=== PATIENT | male | born 1980 | race Caucasian/White ===

== ENCOUNTER 2020-07-19 10:05 | Emergency (ER) | payer BC, SELFPAY ==
--- NOTE | ~2020-07-19 | US_ITS ---
EXAMINATION: US SCROTUM CLINICAL INFORMATION: Left scrotal pain. COMPARISON: None TECHNIQUE: A sonogram of the scrotum was performed assessing levy-scale appearance and color Doppler flow. Spectral Doppler analysis of the arterial and venous flow were performed in the testes bilaterally. FINDINGS: RIGHT: Right testicle measures 4.8 x 2.4 x 3.1 cm, volume 19.2 mL. No intratesticular mass. There is a small solitary calcification in the testes near the mediastinum testis. There is normal bilateral symmetric intratesticular color flow and low resistance waveforms. Bilateral venous flow as well. No torsion. Right epididymal head is normal in size. There is a small epididymal head cyst measuring only 0.3 cm. There is a small hydrocele. No varicocele. Epididymal color flow unremarkable. LEFT: Left testicle measures 4.2 x 2.3 x 3.3 cm, volume 16.5 mL. No focal testicular parenchymal lesions are visualized. There is normal bilateral symmetric intratesticular color flow and low resistance waveforms. Bilateral venous flow as well. No torsion. Left epididymal head is a slightly larger and heterogeneous but without hyperemia on color Doppler to confirm epididymitis. There are small hydroceles similar to that on the right. There is a small left varicocele measuring 3.8 mm venous diameter. US/US scrotum doppler IMPRESSION: 1. No intratesticular mass or torsion. 2. Small left varicocele. 3. Tiny right epididymal head cyst. 4. Small symmetric hydrocele.
--- NOTE | ~2020-07-19 | US_ITS ---
EXAMINATION: US SCROTUM CLINICAL INFORMATION: Left scrotal pain. COMPARISON: None TECHNIQUE: A sonogram of the scrotum was performed assessing levy-scale appearance and color Doppler flow. Spectral Doppler analysis of the arterial and venous flow were performed in the testes bilaterally. FINDINGS: RIGHT: Right testicle measures 4.8 x 2.4 x 3.1 cm, volume 19.2 mL. No intratesticular mass. There is a small solitary calcification in the testes near the mediastinum testis. There is normal bilateral symmetric intratesticular color flow and low resistance waveforms. Bilateral venous flow as well. No torsion. Right epididymal head is normal in size. There is a small epididymal head cyst measuring only 0.3 cm. There is a small hydrocele. No varicocele. Epididymal color flow unremarkable. LEFT: Left testicle measures 4.2 x 2.3 x 3.3 cm, volume 16.5 mL. No focal testicular parenchymal lesions are visualized. There is normal bilateral symmetric intratesticular color flow and low resistance waveforms. Bilateral venous flow as well. No torsion. Left epididymal head is a slightly larger and heterogeneous but without hyperemia on color Doppler to confirm epididymitis. There are small hydroceles similar to that on the right. There is a small left varicocele measuring 3.8 mm venous diameter. US/US scrotum IMPRESSION: 1. No intratesticular mass or torsion. 2. Small left varicocele. 3. Tiny right epididymal head cyst. 4. Small symmetric hydrocele.
[2020-07-19 11:13] VITALS: BP 134/80; PULSE 60; RESP 16; TEMP 36.6; O2SAT 98; BMI 27.3
[2020-07-19 11:52] LABS: Glucose Urine UA NEG (NEG); Leukocyte Esterase Urine NEG (NEG); Nitrite Urine NEG (NEG); Specific Gravity - Urine 1.025 (1.005-1.025); Urine Blood NEG (NEG); Urine Ketones NEG (NEG); Urine Protein NEG (NEG-TRACE)
[2020-07-19 11:54] LABS: Appearance Urine CLEAR; Color Urine YELLOW
--- NOTE | 2020-07-19 12:39 | ED.MALEGU ---
HPI - Male Genitourinary General Chief complaint: Urogenital-Male Stated complaint: groin pain Time Seen by Provider: 07/19/20 12:38 Source: patient Mode of arrival: ambulatory Limitations: no limitations History of Present Illness HPI Narrative: 40-year-old male came in for evaluation of left testicular pain. 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 Patient has bowel movement this morning, and passing flatus, no nausea, no vomiting. Patient described pain as a moderate 5/10, and constant. Patient has never had similar pain in the past. Related Data Allergies Allergy/AdvReac Type Severity Reaction Status Date / Time No Known Allergies Allergy Verified 07/19/20 11:15 Review of Systems Review of Systems: All other systems are reviewed and are negative Constitutional: Reports as per HPI and Reports no additional constitutional complaints Eyes: Reports as per HPI and Reports no additional eye complaints Reports system reviewed and no additional complaints, except as documented Cardiovascular: Reports as per HPI and Reports no additional cardiovascular complaints Respiratory: Reports as per HPI and Reports no additional respiratory complaints Gastrointestinal: Reports as per HPI and Reports no additional gastrointestinal complaints Genitourinary: Reports no additional female genitourinary complaints Musculoskeletal: Reports no additional musculoskeletal complaints Skin/Breast: Reports system reviewed and no additional complaints, except as docu Psychiatric: Reports no additional psychiatric complaints Endocrine: Reports no additional endocrine complaints Hematologic/Lymphatic: Reports no additional hematologic/lymphatic complaints Allergic/Immunologic: Reports no additional allergic/immunologic complaints Reports system reviewed and no additional complaints, except as documented and Reports Abnormal speech present [facility] Past Medical History Medical History No known health problems Surgical History H/O hernia repair Social History Social History Alcohol intake: never Smoking Status: Never smoker Use of substances other than those prescribed or required for medical reasons: No Advance Directives: Yes Advance Directives Information Provided: Yes Advance Directives on File: No Physical Exam Vital Signs: Vital Signs: Last Vital Signs Temp 98.2 F 07/19/20 13:10 Pulse 52 07/19/20 13:10 Resp 17 07/19/20 13:10 BP 140/86 H 07/19/20 13:10 Pulse Ox 98 07/19/20 13:10 Body Mass Index 27.3 Vital signs have been reviewed as appeared to be correct. Blood pressure elevated. Heart rate normal. Respiration rate normal. Temperature normal. Oxygen saturation normal. Appearance: Alert. Oriented X3. No acute distress. Head: Normal external exam. Normocephalic. Atraumatic. No [place] signs noted. No raccoon eyes noted Eyes: PERRLA. EOMI. Conjunctiva and sclera normal. Eyelids normal. ENT: TM's Normal. Pharynx normal. Uvula midline. Moist mucous membranes. No trismus noted. No drooling noted. No muffled voice noted. Neck: Normal inspection. Neck supple. FROM. No adenopathy. Thyroid Normal. No meningeal signs. No neck mass noted. CVS: Normal heart rate and rhythm. Heart sound normal. No murmurs noted. Pulses normal throughout. Respiratory: No respiratory distress. Painless inspiration. Breath sounds normal. No wheezes/rales/rhonchi noted. Chest nontender. No accessory muscle usage noted or decreased air movement noted. Abdomen: Soft and nontender. Bowel sounds normal in all 4 quadrants. No distention noted. No organomegaly noted. No visible injury noted. : Normal circumcised external genitalia, right testicle is nontender, mild tenderness to touch to the left testicle, bilateral cremasteric reflexes are intact. Back: No CVA tenderness. Full range of motion noted. Skin: Skin warm and dry. Normal skin color. Normal skin turgor. No rashes/lesions/lacerations noted. Extremities: No lower extremity edema. Extremities exhibit normal range of motion. Extremities nontender. Neuro: Oriented X 3. No motor deficit. No sensory deficit. Reflexes normal. Course Course Course Narrative: Assessment and plan. 40-year-old male came in with left testicular pain, exam ultrasound results, and UA result is not indicating epididymitis or testicular torsion. Patient was instructed to take 2 days off, avoid standing for long time, elevated testicle, use NSAIDs for the next 2 days every 6 hours. If pain persist patient was instructed to follow up with Dr. Medeiros. Slight elevation of the BUN patient was instructed to drink water and keep well hydrated. MDM - Male Genitourinary Lab Data Attestation: I reviewed the patient's lab results. Result diagrams: 07/19/20 13:05 07/19/20 13:05 Labs: Lab Results 07/19/20 07/19/20 07/19/20 Range/Units 11:20 13:05 13:05 WBC 6.0 (4.8-10.8) X10*3/uL RBC 5.09 (4.60-5.80) X10*6/uL Hgb 16.1 (14.0-18.0) g/dl Hct 47.2 (42-52) % MCV 92.7 (80-98) fL MCH 31.6 (27.0-33.0) pg MCHC 34.1 (31.0-36.0) g/dl RDW 12.4 (11.0-16.0) % Plt Count 182 (160-400) X10*3/uL MPV 10.4 (9.4-12.4) fL Immature Gran % (Auto) 0.2 (0.0-0.4) % Neut % (Auto) 61.1 (45-73) % Lymph % (Auto) 29.7 (20-40) % [place] % (Auto) 7.1 (2-11) % Eos % (Auto) 1.2 (0-4) % Baso % (Auto) 0.7 (0-2) % Lymph # (Auto) 1.8 (1.2-4.9) X10*3/uL [place] # (Auto) 0.4 (0.1-1.2) X10*3/uL Eos # (Auto) 0.1 (0.0-0.4) X10*3/uL Baso # (Auto) 0.0 (0.0-0.2) X10*3/uL Abs Immat Gran (auto) 0.01 (0.00-0.03) X10*3/uL Absolute Neuts (auto) 3.6 (2.0-8.3) X10*3/uL Absolute Nucleated RBC 0.000 (0.0-0.012) X10*3/uL Nucleated RBC % (auto) 0.0 (0.0-0.2) /100WBC Hold Blue Top SEE NOTE Sodium (135-145) mmol/L Potassium (3.3-5.1) mmol/L Chloride (96-108) mmol/L Carbon Dioxide (22-29) mmol/L Anion Gap (12-20) BUN (9-16) mg/dL Creatinine (0.5-1.4) mg/dL Estim Creat Clear Calc Estimated GFR Random Glucose (60-115) mg/dL Calcium (8.4-10.2) mg/dL Urine Color YELLOW Urine Appearance CLEAR Urine pH 6.0 (5.0-8.0) Ur Specific [place] 1.025 (1.005-1.025) Urine Protein NEG (NEG-TRACE) MG/DL Urine Glucose (UA) NEG (NEG) MG/DL Urine Ketones NEG (NEG) MG/DL Urine Blood NEG (NEG) Urine Nitrite NEG (NEG) Ur Leukocyte Esterase NEG (NEG) 07/19/20 Range/Units 13:05 WBC (4.8-10.8) X10*3/uL RBC (4.60-5.80) X10*6/uL Hgb (14.0-18.0) g/dl Hct (42-52) % MCV (80-98) fL MCH (27.0-33.0) pg MCHC (31.0-36.0) g/dl RDW (11.0-16.0) % Plt Count (160-400) X10*3/uL MPV (9.4-12.4) fL Immature Gran % (Auto) (0.0-0.4) % Neut % (Auto) (45-73) % Lymph % (Auto) (20-40) % [place] % (Auto) (2-11) % Eos % (Auto) (0-4) % Baso % (Auto) (0-2) % Lymph # (Auto) (1.2-4.9) X10*3/uL [place] # (Auto) (0.1-1.2) X10*3/uL Eos # (Auto) (0.0-0.4) X10*3/uL Baso # (Auto) (0.0-0.2) X10*3/uL Abs Immat Gran (auto) (0.00-0.03) X10*3/uL Absolute Neuts (auto) (2.0-8.3) X10*3/uL Absolute Nucleated RBC (0.0-0.012) X10*3/uL Nucleated RBC % (auto) (0.0-0.2) /100WBC Hold Blue Top Sodium 140 (135-145) mmol/L Potassium 4.4 (3.3-5.1) mmol/L Chloride 104 (96-108) mmol/L Carbon Dioxide 30 H (22-29) mmol/L Anion Gap 10 L (12-20) BUN 17 H (9-16) mg/dL Creatinine 1.01 (0.5-1.4) mg/dL Estim Creat Clear Calc 99.1 Estimated GFR > 60 Random Glucose 101 (60-115) mg/dL Calcium 9.5 (8.4-10.2) mg/dL Urine Color Urine Appearance Urine pH (5.0-8.0) Ur Specific [place] (1.005-1.025) Urine Protein (NEG-TRACE) MG/DL Urine Glucose (UA) (NEG) MG/DL Urine Ketones (NEG) MG/DL Urine Blood (NEG) Urine Nitrite (NEG) Ur Leukocyte Esterase (NEG) Imaging Data Scrotal ultrasound: Radiologist's impression: 1. No intratesticular mass or torsion. 2. Small left varicocele. 3. Tiny right epididymal head cyst. 4. Small symmetric hydrocele. Discharge Plan Discharge Clinical Impression: Left testicular pain Patient Disposition: Home, Self-Care Instructions: Testicle Pain (ED) Additional Instructions: Avoid standing for long time, laying supine keep towel in between your thighs and wrist your scrotum on it for elevation. Referrals: Yash Medeiros MD [Physician] - 2 days (If not improving in 2 days call this number and make an appointment.) Stand Alone Forms: Work/School Release
[2020-07-19] MEDS: Ibuprofen 600 MG TABLET 800 MG PO (12:59)
[2020-07-19 13:10] VITALS: BP 140/86; PULSE 52; RESP 17; TEMP 36.8; O2SAT 98
[2020-07-19 13:12] LABS: MANUAL DIFF FLAG NO
--- NOTE | 2020-07-19 13:12 | PC.NURSE ---
patient a&ox3, labs drawn, pt medicated per order, vss, pt awaiting US, will continue to monitor.
[2020-07-19 13:21] LABS: Basophils Percent Auto 0.7 % (0-2); Eosinophils Absolute Auto 0.1 X10*3/uL (0.0-0.4); Eosinophils Percent Auto 1.2 % (0-4); Hematocrit 47.2 % (42-52); Hemoglobin 16.1 g/dl (14.0-18.0); Imm Gran Abs Auto 0.01 X10*3/uL (0.00-0.03); Imm Gran Pct Auto 0.2 % (0.0-0.4); Lymphocytes Absolute Auto 1.8 X10*3/uL (1.2-4.9); Lymphocytes Percent Auto 29.7 % (20-40); Mean Corpuscular HGB Conc 34.1 g/dl (31.0-36.0); Mean Corpuscular Hemoglobin 31.6 pg (27.0-33.0); Mean Corpuscular Volume 92.7 fL (80-98); Mean Platelet Volume 10.4 fL (9.4-12.4); Monocytes Absolute Auto 0.4 X10*3/uL (0.1-1.2); Monocytes Percent Auto 7.1 % (2-11); Neutrophils Absolute Auto 3.6 X10*3/uL (2.0-8.3); Neutrophils Percent Auto 61.1 % (45-73); Platelet Count 182 X10*3/uL (160-400); Red Blood Count 5.09 X10*6/uL (4.60-5.80); Red Cell Distribution Width 12.4 % (11.0-16.0)
[2020-07-19 13:43] LABS: Anion Gap 10 (12-20); Blood Urea Nitrogen 17 mg/dL (9-16); Calcium 9.5 mg/dL (8.4-10.2); Carbon Dioxide 30 mmol/L (22-29); Chloride 104 mmol/L (96-108); Creatinine Clr Calc Pharmacy 99.1; Estimated Glomerular Filt Rate > 60; Glucose Random 101 mg/dL (60-115); Potassium 4.4 mmol/L (3.3-5.1); Sodium 140 mmol/L (135-145)
== END 2020-07-19 16:36 | disposition home or self-care (01) ==
PROVIDERS: Emergency Provider Emergency Medicine; PCP Internal Medicine
DX: N50.812 Left testicular pain (principal); R60.0 Localized edema; R10.30 Lower abdominal pain, unspecified
CPT/HCPCS: 36415; 76870; 80048; 81003; 85025; 93975; 99284

== ENCOUNTER 2022-01-07 16:31 | Emergency (ER) | payer OTHER, BC, SELFPAY ==
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
[2022-01-07 16:40] VITALS: BP 164/102; O2SAT 98
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
[2022-01-07 16:57] VITALS: BP 142/97; PULSE 180; RESP 18; TEMP 36.8; O2SAT 95; BMI 28.1
[2022-01-07] MEDS: ondansetron HCL 4 MG/2 ML VIAL IVPUSH (17:18)
--- OUTSIDE RECORDS SUMMARY | 2022-01-07 17:28 | XMS_ITS ---
:1980 Author Organization Dot Yoder MD [facility] Address [address] [place] [address] Care Team Providers Name Role Phone RYAN KNOX Unavailable Unavailable PROBLEMS Type Condition ICD9-CM Code [id number] Code Onset Condition SNO MED Code Dates Status Problem Prediabetes R73.03 Active 53292240 2 Problem Hyperlipidemia, E78.5 Active 5582 2003 unspecified Problem Vitamin D E55.9 Active 75293921 deficiency Problem Hypothyroidism, E03.9 Active 4093 0008 unspecified type ALLERGIES No Known Allergies ENCOUNTERS Encounter Location Date Diagnosis Dot Yoder MD [facility] [address] [facility] 234 03 Dec, 2021 Fam herbert history of colon [facility] [place] cancer in father Z80.0 ; [id number] Elevated blood p ressure reading in offic e without diagnosis of hyp ertension R03.0 ; Encounte r for annual health ex amination Z00.00 ; Vitamin D deficiency E55.9 ; Hyperlipidemia, unspecified E78. 5 ; Hypothyroidism, unspecified type E03.9 and Prediabetes R73. 03 Dot Yoder MD [facility] [address] [facility] 234 03 Dec, 2021 [place] [address] Dot Yoder MD [facility] [address] [facility] 234 Sep, Christina vated blood pressure [facility] [place] reading in offic e without [id number] diagnosis of hyp ertension R03.0 ; Family h istory of colon cancer in father Z80.0 ; Encounte r for annual health ex amination Z00.00 ; Vitamin D deficiency E55.9 and Hyperlipidemia, unspecified E78. 5 Dot Yoder MD [facility] [address] [facility] 234 Sep, [place] [address] Dot Yoder MD [facility] [address] [facility] 234 Sep, [place] [address] IMMUNIZATIONS Vaccine Route Administration Date Status Pfizer Covid-19 Vaccine Unknown August 23, 2020 Administ ered Pfizer Covid-19 Vaccine Unknown August 02, 2020 Administ erebobbi SOCIAL HISTORY Qualifiers Date Never Smoker REASON FOR REFERRAL FUNCTIONAL STATUS PLAN OF CARE Activity Details Future Appointment Provider Name:DOT YODER, 2022-03-06 10:45:00 AM, [address], [place], [address], Future Appointment Provider Name:RYAN KNOX, 2022-12-31 01:00:00 PM, [address] [facility], [facility] [address], [place], [place], [phone], Future Test 25OH VITAMIN D 20211119 Future Test CBC (COMPLETE BLOOD COUNT) W ITH DIFF 20211119 Future Test COMPREHENSIVE METABOLIC PANE L 20211119 Future Test HEMOGLOBIN A1C 20211119 Future Test LIPID PANEL 20211119 Future Test TSH WITH REFLEX TO FT4 82075 823 Future Test URINALYSIS W/REFLEX CULTURE 20211119 Pending Test 25OH VITAMIN D Pending Test CBC (COMPLETE BLOOD COUNT) Pending Test COMPREHENSIVE METABOLIC PANE L Pending Test HEMOGLOBIN A1C Pending Test LIPID PANEL Pending Test TSH Pending Test COMPLETE URINALYSIS VITAL SIGNS Heart Rate 73 /min 2021-12-30 Heart Rate 72 /min 2021-10-22 Weight 194 lbs 2021-12-30 Weight 190 lbs 2021-10-22 BMI 31.31 kg/m2 2021-12-30 BMI 30.66 kg/m2 2021-10-22 Height 66 in 2021-12-30 Height 66 in 2021-10-22 Oximetry 98 % 2021-12-30 Oximetry 96 % 2021-10-22 Blood pressure systolic 130 mm Hg 2021-12-30 Blood pressure diastolic 80 mm Hg 2021-12-30 MEDICATIONS No Known Medications PROCEDURES No Known procedures RESULTS Name Result Date Reference Range GLYCOHEMOGLOBIN PROFILE 2021-11-25 GLYCATED HEMOGLOBIN A1C 5.5 <6.5 ESTIMATED AVERAGE GLUCOSE 111 COMPREHENSIVE METABOLIC PANEL 2021-11-25 Note GLUCOSE 78 70-100 BUN 14 5-25 CREAT 1.10 0.7-1.3 GLOMERULAR FILTRATION RATE > 60 SODIUM 140 135-145 POTASSIUM 4.1 3.5-5.5 CHLORIDE 105 96-110 CO2 31 21-32 ANION GAP 4 3-11 CALCIUM 8.8 8.5-10.5 TOTAL PROTEIN 7.2 6.0-8.0 ALBUMIN 3.6 3.2-5.0 BILI,TOTAL 0.6 0.0-1.4 SGOT 31 10-42 SGPT 56 10-60 ALK PHOS 66 42-121 CBC WITH AUTO DIFF 2021-11-25 WBC 6.4 4.8-10.8 RBC 4.5 4.5-5.5 HEMOGLOBIN 14.4 13.5-17.5 HEMATOCRIT 40.9 42-54 MCV 91.9 79-98 MCH 32.4 27-32 MCHC 35.2 32-37 RDW 12.5 11-15 PLT COUNT 157 130-400 MEAN PLATELET VOLUME 10.8 7-11 NRBC % AUTO 0.0 <1 NEUT % 66.8 LYMPH % 25.0 MONO % 6.5 EOS % 0.9 BASO % 0.5 IMMATURE GRANULOCYTES % 0.3 NRBC # AUTO 0.00 <0.1 ABSOLUTE NEUT 4.24 1.5-7.0 LYMPH # 1.59 1-5.0 MONO # 0.41 0.2-1.0 EOS # 0.06 0-0.5 BASO # 0.03 0-0.2 IMMATURE GRANULOCYTES # 0.02 0-0.03 LIPID PROFILE 2021-11-25 CHOLESTEROL 177 0-200 TRIGLYCERIDES 160 0-150 VITAMIN D, 25-HYDROXY 2021-11-25 VITAMIN D, 25-HYDROXY 38 30-80 TSH CASCADE 2021-11-25 TSH CASCADE 2.70 0.40-4.00 UA WITH CULTURE IF INDICATED 2021-11-25 GLUCOSE, (UA) NEGATIVE NEGATIVE BILIRUBIN, URINE NEGATIVE NEGATIVE KETONE, URINE NEGATIVE NEGATIVE SPECIFIC GRAVITY, URINE 1.020 1.003-1. 030 BLOOD, URINE NEGATIVE NEGATIVE PH, URINE 6.0 5.0-8.0 PROTEIN, URINE NEGATIVE <= TRACE UROBILINOGEN, URINE 0.2 0.2-1.0 NITRITE, URINE NEGATIVE NEGATIVE LEUKOCYTE ESTERASE, URINE NEGATIVE NEGATI VE REASON FOR VISIT labs, Pt is here for a CPE with Lab, Update [place] Demographics, with lab, Pt is here for a New pt visit, Update [place] Demographics, Update [facility] Demographics Insurance Providers [facility] Member Patient Patient Patient Patient Patient Subscriber Subscriber Subscriber Group Insurance Plan Plan Plan Plan ID Relationship Address Phone Name Date of ID Name Date of No Type Insurance Insurance Insurance Coverage to Subscriber Address Phone Name Dates [employer] [phone] [employer] [place] [id number] and Blue [id number] and Blue [place] [address]
--- NOTE | 2022-01-07 17:48 | ECG_ITS ---
Test Reason : TACHY Blood Pressure : / mmHG Vent. Rate : 077 BPM Atrial Rate : 077 BPM P-R Int : 176 ms QRS Dur : 092 ms QT Int : 376 ms P-R-T Axes : 032 007 011 degrees QTc Int : 425 ms Normal sinus rhythm Normal ECG No previous ECGs available Referred By: Sophie Leigh Electronically Signed By:ISAAC MONZON MD
[2022-01-07] MEDS: Diphth,Pertus(ACell),Tet Adult 0.5 ML SYRINGE IM (18:01)
[2022-01-07] MEDS: diphenhydrAMINE HCL 50 MG/ML VIAL 12.5 MG IVPUSH (18:21)
[2022-01-07] MEDS: Metoclopramide HCl 10 MG/2 ML VIAL IVPUSH (18:21)
[2022-01-07 18:25] LABS: MANUAL DIFF FLAG NO
[2022-01-07 18:39] LABS: Anion Gap 14 (12-20); Blood Urea Nitrogen 16 mg/dL (9-16); Calcium 8.8 mg/dL (8.4-10.2); Carbon Dioxide 25 mmol/L (22-29); Chloride 105 mmol/L (96-108); Creatinine Clr Calc Pharmacy 91.2; Estimated Glomerular Filt Rate > 60; Glucose Random 118 mg/dL (60-115); Potassium 4.2 mmol/L (3.3-5.1); Sodium 140 mmol/L (135-145)
[2022-01-07 18:41] LABS: Basophils Percent Auto 0.3 % (0-2); Hemoglobin 14.8 g/dl (14.0-18.0); Imm Gran Abs Auto 0.07 X10*3/uL (0.00-0.03); Imm Gran Pct Auto 0.5 % (0.0-0.4); Lymphocytes Percent Auto 7.3 % (20-40); Mean Corpuscular HGB Conc 35.2 g/dl (31.0-36.0); Mean Corpuscular Volume 90.9 fL (80.0-98.0); Mean Platelet Volume 10.7 fL (9.4-12.4); Monocytes Absolute Auto 0.5 X10*3/uL (0.1-1.2); Monocytes Percent Auto 3.2 % (2-11); Neutrophils Absolute Auto 12.6 x10*3/uL (2.0-8.3); Neutrophils Percent Auto 88.7 % (45-73); Platelet Count 160 X10*3/uL (160-400); Red Blood Count 4.62 X10*6/uL (4.60-5.80); Red Cell Distribution Width 12.1 % (11.0-16.0); White Blood Count 14.2 X10*3/uL (4.8-10.8)
[2022-01-07 18:45] LABS: Troponin-I High Sensitivity < 3.5 ng/L (<3.5-35.0)
[2022-01-07] MEDS: Lidocaine HCl 2 % MPF 5 ML VIAL INFILTRATI (19:57)
[2022-01-07] MEDS: Ketorolac Tromethamine 30 MG/ML VIAL IVPUSH (20:01)
[2022-01-07] MEDS: cephALEXin 500 MG CAPSULE PO (20:02)
[2022-01-07 21:34] VITALS: BP 139/90; PULSE 80; RESP 16; TEMP 36.7; O2SAT 99
== END 2022-01-07 21:37 | disposition home or self-care (01) ==
PROVIDERS: Nurse Practitioner Family; Emergency Provider Emergency Medicine
DX: S02.85XA Fracture of orbit, unspecified, initial encounter for closed fracture (principal); S02.5XXA Fracture of tooth (traumatic), initial encounter for closed fracture; S01.112A Laceration without foreign body of left eyelid and periocular area, initial encounter; S01.81XA Laceration without foreign body of other part of head, initial encounter; S06.0XAA Concussion with loss of consciousness status unknown, initial encounter; R51.9 Headache, unspecified; M54.2 Cervicalgia; Y04.2XXA Assault by strike against or bumped into by another person, initial encounter; Y93.9 Activity, unspecified; Y92.9 Unspecified place or not applicable; Y99.0 Civilian activity done for income or pay; Z79.899 Other long term (current) drug therapy
CPT/HCPCS: 12042; 12052; 36415; 70450; 70486; 72125; 80048; 84484; 85025; 90471; 90715; 93005; 99284; J1200; J1885; J2405; J2765